=== PATIENT | female | born 1935 | race Two or more races ===

== ENCOUNTER 2020-06-18 19:15 | Emergency (ER) | payer SELFPAY ==
[~2020-06-18] VITALS: Ht 152.4 cm; Wt 44.0 kg
--- NOTE | 2020-06-18 19:29 | NUR ---
TASK RN: PT PERSIAN SPEAKING. DAUGHTER AT BEDSIDE FOR TRANSLATION. AROUND 0900, PT WITH PALPATIONS. DENIES SOB, CP, DIZZINESS, SYNCOPE. PER EMS, PT IN AND OUT OF SVT APPROX 5 TIMES WITH SUSTAINED SVT LONG 5 MIN. PT WAS SEEN RECENTLY AT [facility] FOR SAME. ER MD MUNOZ AT BEDSIDE FOR ASSESSMENT. PT ATTACHTED TO ALL MONITORS. BEDRIALS UP X 2.
[2020-06-18] MEDS ORDERED: METOPROLOL 1 MG/ML, 5ML IVPush ONE (19:30)
[2020-06-18] MEDS ORDERED: SODIUM CHLORIDE FLUSH 10ML SYR IVF ONE (19:30)
[2020-06-18] MEDS ORDERED: LISI-170 PO (19:33)
[2020-06-18] MEDS ORDERED: METO25TA35 PO (19:33)
[2020-06-18] MEDS ORDERED: METOPROLOL 1 MG/ML, 5ML ONE (19:36)
--- NOTE | 2020-06-18 20:03 | NUR ---
PT LAYING BACK IN BED, RESPIRATIONS EVEN AND UNLABORED SATURATING WELL ON RA. PER DAUGHTER, PT REPORTS DIFFICULTY SLEEPING, BUT DENIES PAIN AT THIS TIME. ALSO C/O "BURPING A LOT" ALL DAY. PT AND DAUGHTER WATCHING TELEVISION. VSS AT THIS TIME. HR REMAINS IN 60-70'S
[2020-06-18 20:19] LABS: BASOPHILS % (AUTO) 1 % (0-1); EOSINOPHILS % (AUTO) 6 % (1-7); LYMPHOCYTES % (AUTO) 17 % (22-44); MEAN CORPUSCULAR HEMOGLOBIN 33.2 pg (27.0-34.8); MEAN CORPUSCULAR HGB CONC 33.3 g/dL (32.4-35.8); MEAN PLATELET VOLUME 9.7 fL (7.4-10.4); MONOCYTES % (AUTO) 10 % (2-9); NEUTROPHILS % (AUTO) 67 % (42-75); PLATELET COUNT 222 x10^3/uL (130-400); RED BLOOD COUNT 3.76 x10^6/uL (3.82-5.3); RED CELL DISTRIBUTION WIDTH 13.7 % (9.6-15.2)
[2020-06-18 20:22] LABS: MD NO
[2020-06-18 20:31] LABS: ALBUMIN 3.3 g/dL (3.4-5.0); ANION GAP 5 mmol/L (5-15); CALCIUM 8.3 mg/dL (8.5-10.1); CHLORIDE 112 mmol/L (98-107); CREATININE 1.14 mg/dL (0.55-1.02)
[2020-06-18 20:34] LABS: TROPONIN I < 0.015 ng/mL (0.000-0.045)
[2020-06-18 21:34] VITALS: BP 155/60
== END 2020-06-18 21:49 | disposition home or self-care (01) ==
LOC: ED 21:40
DX: I49.3 Ventricular premature depolarization (principal); I44.0 Atrioventricular block, first degree; I47.1 Supraventricular tachycardia; I10 Essential (primary) hypertension
CPT/HCPCS: 36415; 71045; 80048; 82040; 83735; 84484; 85025; 93005; 96374; 99291

== ENCOUNTER 2020-06-27 09:28 | Inpatient (IN) | payer OTHER ==
[~2020-06-27] VITALS: Ht 154.9 cm; Wt 44.9 kg
[~2020-06-27 09:28] MED LIST: LISI-170 PO; METO25TA35 PO
[2020-06-27] MEDS ORDERED: ADENOSINE 6 MG/2 ML ONE (09:36)
[2020-06-27] MEDS ORDERED: METOPROLOL 1 MG/ML, 5ML ONE (09:38)
--- NOTE | 2020-06-27 09:40 | NUR ---
PT BIB [facility] FOR PALPITATIONS, DENIES CP SINCE 9 AM TOADY WITH RECENT SVT, TACHYCARDIA 3 X OVER LAST MONTH. PT ON . PT CONVERTED HERSELF AND ADENOSINE HELD, METOPROLOL TO BE GIVEN PER DR. WRAY.
[2020-06-27] MEDS ORDERED: ADENOSINE 6 MG/2 ML IVPush ONE (10:00)
[2020-06-27] MEDS ORDERED: SODIUM CHLORIDE FLUSH 10ML SYR IVF ONE (10:00)
[2020-06-27] MEDS ORDERED: METOPROLOL 1 MG/ML, 5ML IVPush ONE (10:00)
[2020-06-27] MEDS ORDERED: PLEASE ENTER HEIGHT AND WEIGHT MC SCH (10:00)
[2020-06-27] MEDS ORDERED: ASPI81TA45 PO (10:04)
--- NOTE | 2020-06-27 10:04 | NUR ---
CARDS AT BEDSIDE. PT TO HAVE ABLATION ON MONDAY FOR RECURRENT SVT, TACHYCARDIA.
[2020-06-27 10:12] LABS: BASOPHILS % (AUTO) 1 % (0-1); EOSINOPHILS % (AUTO) 5 % (1-7); LYMPHOCYTES % (AUTO) 21 % (22-44); MEAN CORPUSCULAR HEMOGLOBIN 33.6 pg (27.0-34.8); MEAN CORPUSCULAR HGB CONC 33.7 g/dL (32.4-35.8); MEAN PLATELET VOLUME 9.6 fL (7.4-10.4); MONOCYTES % (AUTO) 9 % (2-9); NEUTROPHILS % (AUTO) 64 % (42-75); PLATELET COUNT 213 x10^3/uL (130-400); RED BLOOD COUNT 4.23 x10^6/uL (3.82-5.3); RED CELL DISTRIBUTION WIDTH 13.8 % (9.6-15.2)
[2020-06-27 10:14] LABS: MD NO
[2020-06-27 10:19] LABS: ALBUMIN 3.8 g/dL (3.4-5.0); ANION GAP 6 mmol/L (5-15); CALCIUM 8.8 mg/dL (8.5-10.1); CHLORIDE 110 mmol/L (98-107); CREATININE 1.12 mg/dL (0.55-1.02)
[2020-06-27 10:23] LABS: TROPONIN I < 0.015 ng/mL (0.000-0.045)
[2020-06-27] MEDS ORDERED: ONDANSETRON 2MG/ML, 2ML IVPush PRN (10:30)
[2020-06-27] MEDS ORDERED: SODIUM CHLORIDE 0.9% 1,000 ML IV SCH (10:30)
[2020-06-27] MEDS ORDERED: ACETAMINOPHEN 325 MG TABLET PO PRN (10:30)
[2020-06-27] MEDS ORDERED: ONDANSETRON ODT 4 MG PO PRN (10:30)
[2020-06-27] MEDS ORDERED: LISINOPRIL 20 MG TABLET ONE (11:00)
[2020-06-27] MEDS ORDERED: LISINOPRIL 20 MG TABLET PO ONE (11:00)
[2020-06-27] MEDS ORDERED: HEPARIN 5,000 UNITS/ML, 1ML ONE (11:01)
[2020-06-27] MEDS: HEPARIN 5,000 UNITS/ML, 1ML SQ SCH ×2 (11:06→23:01)
--- NOTE | 2020-06-27 11:06 | NUR ---
PT BP [address] WRAY AWARE AND PT TO GET LISINIPRIL 20 MG NOW. PT NORMALLY TAKES LISINIPRIL AT HOME AT ABOUT THIS TIME. PT MOVED TO ROOM 15. REPORT TO ISABELLA MELO.
--- NOTE | 2020-06-27 11:17 | NUR ---
REPORT FROM FLETCHER MELO, ASSUMED CARE OF PT AT THIS TIME
[2020-06-27] MEDS ORDERED: NEOSPORIN OINT. PKT 1 PACKET ONE (16:29)
[2020-06-27 17:02] LABS: TROPONIN I 0.018 ng/mL (0.000-0.045)
--- NOTE | 2020-06-27 20:17 | NUR ---
received pt at 1900. pt calm and resting. report called to floor RN, and waiting for room to be clean.
--- NOTE | 2020-06-27 21:06 | NUR ---
pt awake and alert, and calm and cooperative. updated to status of admit and she v/u
--- NOTE | 2020-06-27 21:57 | NUR ---
pt refusing to go upstairs without daughter. throughput RN to bedside to talk with pt and family member. pt to go upstairs.
--- NOTE | 2020-06-27 22:02 | NUR ---
pts daughter convinced pt it is in her best interest to be admitted and agrees and will go upstairs now.
[2020-06-27 22:38] VITALS: BP 160/64
[2020-06-28 03:45] VITALS: BP 144/66
[2020-06-28 05:42] LABS: BASOPHILS % (AUTO) 2 % (0-1); EOSINOPHILS % (AUTO) 5 % (1-7); LYMPHOCYTES % (AUTO) 29 % (22-44); MEAN CORPUSCULAR HEMOGLOBIN 33.3 pg (27.0-34.8); MEAN CORPUSCULAR HGB CONC 33.3 g/dL (32.4-35.8); MEAN PLATELET VOLUME 10.2 fL (7.4-10.4); MONOCYTES % (AUTO) 9 % (2-9); NEUTROPHILS % (AUTO) 55 % (42-75); PLATELET COUNT 196 x10^3/uL (130-400); RED BLOOD COUNT 3.72 x10^6/uL (3.82-5.3); RED CELL DISTRIBUTION WIDTH 13.9 % (9.6-15.2)
[2020-06-28 05:46] LABS: ANION GAP 4 mmol/L (5-15); CALCIUM 8.4 mg/dL (8.5-10.1); CHLORIDE 110 mmol/L (98-107)
[2020-06-28 05:48] LABS: MD NO
[2020-06-28] MEDS: ASPIRIN 81 MG TABLET EC PO SCH (09:00)
[2020-06-28 10:09] VITALS: BP 184/62
[2020-06-28] MEDS: SODIUM CHLORIDE 0.9% 1,000 ML IV SCH (10:30)
[2020-06-28] MEDS: HEPARIN 5,000 UNITS/ML, 1ML SQ SCH ×2 (10:35→22:03)
[2020-06-28] MEDS: LISINOPRIL 20 MG TABLET PO SCH (10:35)
[2020-06-28] MEDS ORDERED: SODIUM CHLORIDE 0.9% 1,000 ML IV SCH (11:30)
[2020-06-28] MEDS: AMLODIPINE 2.5 MG TABLET PO SCH (12:02)
[2020-06-28 12:05] VITALS: BP 171/64
[2020-06-28 20:25] VITALS: BP 129/67
[2020-06-29 00:02] VITALS: BP 132/94
[2020-06-29] MEDS ORDERED: DILTIAZEM 5 MG/ML, 5ML ONE ×2 (00:02→08:13)
[2020-06-29] MEDS ORDERED: DILTIAZEM 125 MG in SODIUM CHLORIDE 0.9% 100 ML IV SCH (00:30)
[2020-06-29] MEDS ORDERED: ADENOSINE 6 MG/2 ML ONE ×2 (02:14→11:55)
[2020-06-29] MEDS ORDERED: ADENOSINE 6 MG/2 ML IVPush ONE ×3 (02:30→03:00)
[2020-06-29] MEDS ORDERED: METOPROLOL 1 MG/ML, 5ML IVPush STA (03:14)
[2020-06-29] MEDS ORDERED: METOPROLOL 1 MG/ML, 5ML ONE (03:14)
[2020-06-29 05:39] LABS: BASOPHILS % (AUTO) 1 % (0-1); EOSINOPHILS % (AUTO) 2 % (1-7); LYMPHOCYTES % (AUTO) 20 % (22-44); MEAN CORPUSCULAR HEMOGLOBIN 33.5 pg (27.0-34.8); MEAN CORPUSCULAR HGB CONC 33.6 g/dL (32.4-35.8); MEAN PLATELET VOLUME 9.8 fL (7.4-10.4); MONOCYTES % (AUTO) 8 % (2-9); NEUTROPHILS % (AUTO) 69 % (42-75); PLATELET COUNT 190 x10^3/uL (130-400); RED BLOOD COUNT 3.54 x10^6/uL (3.82-5.3); RED CELL DISTRIBUTION WIDTH 13.9 % (9.6-15.2)
[2020-06-29 05:43] LABS: MD NO
[2020-06-29] MEDS: ASPIRIN 81 MG TABLET EC PO SCH (07:56)
[2020-06-29] MEDS: AMLODIPINE 2.5 MG TABLET PO SCH (07:57)
[2020-06-29] MEDS: LISINOPRIL 20 MG TABLET PO SCH (07:57)
[2020-06-29 08:10] VITALS: BP 132/89
[2020-06-29] MEDS ORDERED: DILTIAZEM 5 MG/ML, 5ML IVPush ONE ×2 (08:30)
[2020-06-29] MEDS ORDERED: DILTIAZEM 125 MG in SODIUM CHLORIDE 0.9% 100 ML IV PRN (08:30)
[2020-06-29] MEDS: HEPARIN 5,000 UNITS/ML, 1ML SQ SCH ×2 (09:47→22:02)
[2020-06-29] MEDS: SODIUM CHLORIDE 0.9% 1,000 ML IV SCH (10:30)
[2020-06-29] MEDS ORDERED: FENTANYL PF 100 MCG/2ML ONE (11:55)
[2020-06-29] MEDS ORDERED: ISOPROTERENOL 0.2MG/ML, 5ML ONE (11:55)
[2020-06-29] MEDS ORDERED: MIDAZOLAM 1 MG/ML, 5ML ONE (11:55)
[2020-06-29] MEDS ORDERED: LIDOCAINE 1%, 20ML ONE (11:56)
[2020-06-29 15:05] VITALS: BP 138/74
[2020-06-29 22:12] VITALS: BP 136/72
[2020-06-30 01:53] VITALS: BP 140/64
[2020-06-30 08:00] VITALS: BP 154/78
[2020-06-30] MEDS ORDERED: AMLO2.5T5 PO (09:05)
[2020-06-30] MEDS: LISINOPRIL 20 MG TABLET PO SCH (09:20)
[2020-06-30] MEDS: ASPIRIN 81 MG TABLET EC PO SCH (09:20)
[2020-06-30] MEDS: AMLODIPINE 2.5 MG TABLET PO SCH (09:20)
[2020-06-30 10:04] VITALS: BP 124/67
[2020-06-30] MEDS: HEPARIN 5,000 UNITS/ML, 1ML SQ SCH (10:34)
== END 2020-06-30 12:05 | disposition home or self-care (01) | DRG 274 ==
LOC: ED 10:36 → EDIP 11:42 → 5SO 22:17 → DCLOUNGE 06-30 11:46
PROVIDERS: ADMIT Internal Medicine; ATTEND Internal Medicine
PROC: 02583ZZ Destruction of Conduction Mechanism, Percutaneous Approach (ICD-10-PCS; principal; 2020-06-29)
PROC: 02K83ZZ Map Conduction Mechanism, Percutaneous Approach (ICD-10-PCS; 2020-06-29)
PROC: 4A0234Z Measurement of Cardiac Electrical Activity, Percutaneous Approach (ICD-10-PCS; 2020-06-29)
PROC: 4A023FZ Measurement of Cardiac Rhythm, Percutaneous Approach (ICD-10-PCS; 2020-06-29)
DX: I47.1 Supraventricular tachycardia (principal); I10 Essential (primary) hypertension; Z79.82 Long term (current) use of aspirin; Z87.891 Personal history of nicotine dependence; Z20.828 Contact with and (suspected) exposure to other viral communicable diseases
CPT/HCPCS: 36415; 93613; 93621; 93653; 96374; 99285; J3490; 71045; 80048; 82040; 83735; 84443; 84484; 85025; 93005; 93306; 99156; 99157; C1894; G0378; J0153; J1644; J2250; J3010; C1730; C2630; J7030; U0003